=== PATIENT | male | born 1960 | race Caucasian/White ===

== ENCOUNTER → 2016-11-30 | Outpatient (CLI) | payer BC ==
[~2016-11-30] MED LIST: ANTIVERT 25MG25 MG PO; ATORVASTATIN; BYSTOLIC2.5 MG; CRESTOR; HCTZ; LISINOPRIL; LISINOPRIL2.5 MG PO; PHENERGAN 25 TA25 MG PO; TRICOR145 MG PO; ZETIA10 MG PO; ZOFRAN 4MG T4 MG/TAB PO; [UNRECOGNIZED DRUG - OTHER]
== END ==
LOC: COL.VAS 12:15
DX: M79.89 Other specified soft tissue disorders (principal)

== ENCOUNTER 2017-07-02 05:10 | Inpatient (IN) | payer BC ==
[~2017-07-02] VITALS: Ht 175.3 cm; Wt 87.9 kg
[2017-07-02] VITALS (496 sets, daily range): BP systolic 100–204; BP diastolic 53–118; PULSE 83–149; TEMP 97.2–103; O2SAT 81–100
[~2017-07-02 05:10] MED LIST changes: -LISINOPRIL; +PRINZIDE 25 MG-1 TAB PO
[2017-07-02 06:12] LABS: COLLECTION METHOD CLEAN CATCH
[2017-07-02 06:20] LABS: MUCOUS Present /lpf; PH 5 (5-8); SQUAMOUS EPITHELIAL None Seen /hpf; URINE APPEARANCE Clear; URINE BACTERIA None Seen /hpf; URINE BILIRUBIN Negative (NEGATIVE); URINE BLOOD 1+ (NEGATIVE); URINE COLOR Yellow; URINE GLUCOSE Negative (NEGATIVE); URINE KETONE Negative (NEGATIVE); URINE LEUKOCYTE ESTERASE 2+ (NEGATIVE); URINE NITRATE Negative (NEGATIVE); URINE PROTEIN(semi-quant) Negative (NEGATIVE); URINE RBC 0-2 /hpf; URINE UROBILINOGEN Negative (NEGATIVE)
[2017-07-02 06:27] LABS: HEMOGLOBIN 12.9 g/dl (13.5-18.0); MEAN CELL VOLUME 83 fl (80.0-100.0); MEAN CORPUSCULAR HEMOGLOBIN 29 pg (27.0-31.0); MEAN CORPUSCULAR HGB CONC 35 g/dl (33.0-37.0); MEAN PLATELET VOLUME 10.5 fl (7.4-10.4); PLATELET COUNT 129 K/mm3 (130-400); RED BLOOD COUNT 4.44 M/mm3 (4.20-5.60); REDCELL DISTRIBUTION WIDTH-CV 12.9 % (11.5-14.5)
[2017-07-02 06:28] LABS: HEMATOCRIT 36.8 % (42.0-52.0)
[2017-07-02 06:48] LABS: ALBUMIN 4.6 gm/dL (3.5-5.0); BILIRUBIN,TOTAL 1.6 mg/dL (0.0-1.0); CALCIUM 9.7 mg/dL (8.4-10.2); CREATININE, serum 1.06 mg/dL (0.66-1.25); POTASSIUM 3.7 mmol/L (3.4-5.0); TOTAL PROTEIN 7.3 gm/dL (6.4-8.2)
[2017-07-02] MEDS ORDERED: CLEOCIN HCL300 MG PO (06:58)
[2017-07-02] MEDS ORDERED: LEVAQUIN 5500 MG/TA1 PO (06:58)
[2017-07-02 06:59] LABS: C-REACTIVE PROTEIN 17.2 mg/dL (0.0-0.9)
[2017-07-02 07:10] LABS: BAND 17 % (0-10); LYMPHOCYTE 1 % (20.0-51.0); NEUTROPHILS 81 % (42.0-75.2); PLATELET ESTIMATE NORMAL (NORMAL)
[2017-07-02] MEDS ORDERED: PRILOSEC 20MG20 MG PO (07:17)
[2017-07-02] MEDS ORDERED: PRINIVIL10 MG PO (07:18)
[2017-07-02] MEDS ORDERED: VASCEPA1 GM PO (07:19)
[2017-07-02] MEDS ORDERED: BYSTOLIC5 MG PO (07:19)
[2017-07-02] MEDS ORDERED: MULTIVITAMIN1 CTB PO (07:20)
[2017-07-02] MEDS ORDERED: FIBER0.52 GM PO (07:21)
[2017-07-02 16:37] LABS: BILIRUBIN,TOTAL 1.2 mg/dL (0.0-1.0); CALCIUM 8.9 mg/dL (8.4-10.2); CREATININE, serum 1.42 mg/dL (0.66-1.25); TOTAL PROTEIN 6.7 gm/dL (6.4-8.2)
[2017-07-02 16:39] LABS: POTASSIUM 3.3 mmol/L (3.4-5.0)
[2017-07-02 17:07] LABS: TROPONIN-I 3 HR POST INITIAL 0.133 ng/mL (0.000-0.034)
[2017-07-02 17:41] LABS: MEAN CELL VOLUME 84 fl (80.0-100.0); MEAN CORPUSCULAR HGB CONC 35 g/dl (33.0-37.0); MEAN PLATELET VOLUME 10.3 fl (7.4-10.4); PLATELET COUNT 87 K/mm3 (130-400); RED BLOOD COUNT 3.65 M/mm3 (4.20-5.60); REDCELL DISTRIBUTION WIDTH-CV 13.3 % (11.5-14.5)
[2017-07-02 17:42] LABS: HEMATOCRIT 30.7 % (42.0-52.0); HEMOGLOBIN 10.7 g/dl (13.5-18.0); MEAN CORPUSCULAR HEMOGLOBIN 29 pg (27.0-31.0)
[2017-07-02 18:07] LABS: BAND 32 % (0-10); LYMPHOCYTE 8 % (20.0-51.0); METAMYELOCYTE 2 % (0-0); NEUTROPHILS 50 % (42.0-75.2); PLATELET ESTIMATE DECREASED (NORMAL)
[2017-07-03] VITALS (1264 sets, daily range): BP systolic 120–146; BP diastolic 63–81; PULSE 66–107; TEMP 97–102.4; O2SAT 80–100
[2017-07-03 06:12] LABS: MEAN CELL VOLUME 86 fl (80.0-100.0); MEAN CORPUSCULAR HGB CONC 34 g/dl (33.0-37.0); PLATELET COUNT 85 K/mm3 (130-400); RED BLOOD COUNT 3.71 M/mm3 (4.20-5.60); REDCELL DISTRIBUTION WIDTH-CV 13.8 % (11.5-14.5)
[2017-07-03 06:16] LABS: HEMATOCRIT 31.8 % (42.0-52.0); HEMOGLOBIN 10.7 g/dl (13.5-18.0); INR 1.5 (0.8-3.0); MEAN CORPUSCULAR HEMOGLOBIN 29 pg (27.0-31.0); PROTHROMBIN TIME 17.4 SECONDS (9.7-12.8)
[2017-07-03 06:19] LABS: PARTIAL THROMBOPLASTIN TIME 31.2 SECONDS (26.0-37.0)
[2017-07-03 06:25] LABS: ALBUMIN 3.4 gm/dL (3.5-5.0); BILIRUBIN,TOTAL 2.2 mg/dL (0.0-1.0); CALCIUM 8.5 mg/dL (8.4-10.2); CREATININE, serum 1.35 mg/dL (0.66-1.25); POTASSIUM 4.5 mmol/L (3.4-5.0); TOTAL PROTEIN 6.2 gm/dL (6.4-8.2)
[2017-07-04] VITALS (841 sets, daily range): BP systolic 133–152; BP diastolic 79–81; PULSE 76–96; TEMP 98–101.6; O2SAT 76–100
[2017-07-04 06:19] LABS: ALBUMIN 3.1 gm/dL (3.5-5.0); BILIRUBIN,TOTAL 0.9 mg/dL (0.0-1.0); CALCIUM 8.6 mg/dL (8.4-10.2); CREATININE, serum 0.95 mg/dL (0.66-1.25); TOTAL PROTEIN 5.9 gm/dL (6.4-8.2)
[2017-07-04 06:21] LABS: INR 1.4 (0.8-3.0); PROTHROMBIN TIME 15.8 SECONDS (9.7-12.8)
[2017-07-04 06:24] LABS: PARTIAL THROMBOPLASTIN TIME 31.6 SECONDS (26.0-37.0)
[2017-07-04 10:39] LABS: MEAN CELL VOLUME 88 fl (80.0-100.0); MEAN CORPUSCULAR HGB CONC 33 g/dl (33.0-37.0); MEAN PLATELET VOLUME 11.1 fl (7.4-10.4); PLATELET COUNT 113 K/mm3 (130-400); RED BLOOD COUNT 3.57 M/mm3 (4.20-5.60); REDCELL DISTRIBUTION WIDTH-CV 13.7 % (11.5-14.5)
[2017-07-04 10:49] LABS: HEMATOCRIT 31.5 % (42.0-52.0); HEMOGLOBIN 10.4 g/dl (13.5-18.0); MEAN CORPUSCULAR HEMOGLOBIN 29 pg (27.0-31.0)
[2017-07-04 11:17] LABS: BAND 35 % (0-10); EOSINOPHIL 1 % (0-4); LYMPHOCYTE 6 % (20.0-51.0); NEUTROPHILS 56 % (42.0-75.2); PLATELET ESTIMATE DECREASED (NORMAL)
[2017-07-04] MEDS ORDERED: CRESTOR20 MG (22:28)
[2017-07-05 02:50] VITALS: BP 151/82; PULSE 80; TEMP 99.2
[2017-07-05 06:28] VITALS: BP 161/84; PULSE 81; TEMP 99.8
[2017-07-05 06:37] LABS: INR 1.2 (0.8-3.0); PROTHROMBIN TIME 14.2 SECONDS (9.7-12.8)
[2017-07-05 06:39] LABS: ALBUMIN 3.4 gm/dL (3.5-5.0); BILIRUBIN,TOTAL 0.7 mg/dL (0.0-1.0); CALCIUM 8.7 mg/dL (8.4-10.2); CHOLESTEROL RISK RATIO 7.9; CREATININE, serum 0.88 mg/dL (0.66-1.25); POTASSIUM 3.7 mmol/L (3.4-5.0); TOTAL PROTEIN 6.5 gm/dL (6.4-8.2)
[2017-07-05 08:24] LABS: BASO % 0.4 % (0.0-2.0); EOS % 0.6 % (0-4.0); GRAN % 83.4 % (42.2-75.2); LYMPH # 0.4 (1.2-3.4); LYMPH % 7.9 % (20.0-51.0); MEAN CELL VOLUME 86 fl (80.0-100.0); MEAN CORPUSCULAR HGB CONC 34 g/dl (33.0-37.0); MEAN PLATELET VOLUME 11.4 fl (7.4-10.4); MONO # 0.3 (0.1-0.6); MONO % 6.9 % (1.7-9.3); PLATELET COUNT 151 K/mm3 (130-400); RED BLOOD COUNT 3.52 M/mm3 (4.20-5.60); REDCELL DISTRIBUTION WIDTH-CV 13.4 % (11.5-14.5)
[2017-07-05 08:25] LABS: HEMATOCRIT 30.3 % (42.0-52.0); HEMOGLOBIN 10.2 g/dl (13.5-18.0); MEAN CORPUSCULAR HEMOGLOBIN 29 pg (27.0-31.0)
[2017-07-05 10:09] VITALS: BP 169/83; PULSE 85; TEMP 98.8
[2017-07-05 14:00] VITALS: BP 142/76; PULSE 73; TEMP 99
[2017-07-05 17:08] VITALS: BP 151/79; PULSE 77; TEMP 97.2
[2017-07-05 21:29] VITALS: BP 154/83; PULSE 70; TEMP 98.2
[2017-07-06] VITALS (7 sets, daily range): BP systolic 154–170; BP diastolic 50–82; PULSE 47–66; TEMP 97.5–98.5
[2017-07-06 07:14] LABS: MEAN CELL VOLUME 85 fl (80.0-100.0); MEAN CORPUSCULAR HGB CONC 34 g/dl (33.0-37.0); MEAN PLATELET VOLUME 10.6 fl (7.4-10.4); PLATELET COUNT 171 K/mm3 (130-400); RED BLOOD COUNT 3.65 M/mm3 (4.20-5.60); REDCELL DISTRIBUTION WIDTH-CV 13.2 % (11.5-14.5)
[2017-07-06 07:15] LABS: INR 1.2 (0.8-3.0)
[2017-07-06 07:18] LABS: PARTIAL THROMBOPLASTIN TIME 29.4 SECONDS (26.0-37.0)
[2017-07-06 07:20] LABS: ALBUMIN 3.5 gm/dL (3.5-5.0); BILIRUBIN,TOTAL 0.7 mg/dL (0.0-1.0); CALCIUM 8.9 mg/dL (8.4-10.2); CREATININE, serum 0.79 mg/dL (0.66-1.25); POTASSIUM 3.4 mmol/L (3.4-5.0); TOTAL PROTEIN 6.5 gm/dL (6.4-8.2)
[2017-07-06 07:40] LABS: HEMATOCRIT 30.9 % (42.0-52.0); HEMOGLOBIN 10.5 g/dl (13.5-18.0); MEAN CORPUSCULAR HEMOGLOBIN 29 pg (27.0-31.0)
[2017-07-06 10:06] LABS: BAND 40 % (0-10); EOSINOPHIL 1 % (0-4); LYMPHOCYTE 25 % (20.0-51.0); NEUTROPHILS 32 % (42.0-75.2)
[2017-07-06 10:08] LABS: PLATELET ESTIMATE NORMAL (NORMAL)
[2017-07-07 04:01] VITALS: BP 156/79; PULSE 67; TEMP 97.9
[2017-07-07 07:03] LABS: INR 1.2 (0.8-3.0); PROTHROMBIN TIME 14.5 SECONDS (9.7-12.8)
[2017-07-07 07:19] LABS: MEAN CELL VOLUME 84 fl (80.0-100.0); MEAN CORPUSCULAR HGB CONC 34 g/dl (33.0-37.0); MEAN PLATELET VOLUME 10.2 fl (7.4-10.4); PLATELET COUNT 206 K/mm3 (130-400); RED BLOOD COUNT 3.89 M/mm3 (4.20-5.60); REDCELL DISTRIBUTION WIDTH-CV 13.2 % (11.5-14.5)
[2017-07-07 07:29] LABS: ALBUMIN 3.5 gm/dL (3.5-5.0); BILIRUBIN,TOTAL 0.8 mg/dL (0.0-1.0); CALCIUM 9.2 mg/dL (8.4-10.2); CREATININE, serum 0.85 mg/dL (0.66-1.25); HEMATOCRIT 32.7 % (42.0-52.0); HEMOGLOBIN 11.2 g/dl (13.5-18.0); MEAN CORPUSCULAR HEMOGLOBIN 29 pg (27.0-31.0); POTASSIUM 3.7 mmol/L (3.4-5.0); TOTAL PROTEIN 6.5 gm/dL (6.4-8.2)
[2017-07-07] MEDS ORDERED: FLOMAX 0.40.4 MG/CAP PO (07:49)
[2017-07-07] MEDS ORDERED: LIDO2%GEL TOP (07:51)
[2017-07-07] MEDS ORDERED: INVANZ INJ1 G/VIAL IV (08:38)
[2017-07-07] MEDS ORDERED: PROCTOFOAM-HC 11 FOA RC (08:40)
[2017-07-07 09:35] VITALS: BP 167/74; PULSE 79; TEMP 97.6
[2017-07-07 09:55] LABS: BAND 16 % (0-10); LYMPHOCYTE 29 % (20.0-51.0); NEUTROPHILS 50 % (42.0-75.2); PLATELET ESTIMATE NORMAL (NORMAL)
[2017-07-07 09:56] LABS: TOXIC GRANULATION PRESENT
[2017-07-07 11:28] VITALS: BP 148/84; PULSE 74; TEMP 97.9
[2017-07-07] MEDS ORDERED: COREG12.5 MG PO (11:40)
[2017-07-07 15:46] VITALS: BP 148/84; PULSE 74; TEMP 97.9
== END 2017-07-07 15:35 | disposition home or self-care (01) | DRG 871 ==
LOC: COL.ER 05:10 → SURG 07:12 → ICU 07:12 → SURG 07-04 18:48
PROVIDERS: Emergency Medicine; Internal Medicine; Physician Assistant; Urology
PROC: 02HV33Z Insertion of Infusion Device into Superior Vena Cava, Percutaneous Approach (ICD-10-PCS; principal; 2017-07-07)
DX: A41.51 Sepsis due to Escherichia coli [E. coli] (principal); I21.4 Non-ST elevation (NSTEMI) myocardial infarction; N41.0 Acute prostatitis; N17.9 Acute kidney failure, unspecified; N39.0 Urinary tract infection, site not specified; I10 Essential (primary) hypertension; K64.5 Perianal venous thrombosis; R65.20 Severe sepsis without septic shock; B96.20 Unspecified Escherichia coli [E. coli] as the cause of diseases classified elsewhere
CPT/HCPCS: 99223; 99231-AI; 99233-AI; C1751; J0690; J0696; J1335; J1580; J1644; J1720; J1940; J2185; J2270; J2405; J3475; J7030; J7050; J7120; Q9967

== ENCOUNTER 2017-07-08 12:32 | Outpatient (RCR) | payer BC ==
[~2017-07-08] VITALS: Ht 175.3 cm; Wt 87.0 kg
[~2017-07-08 12:32] MED LIST changes: +BYSTOLIC5 MG PO; +CLEOCIN HCL300 MG PO; +COREG12.5 MG PO; +CRESTOR20 MG; +FIBER0.52 GM PO; +FLOMAX 0.40.4 MG/CAP PO; +INVANZ INJ1 G/VIAL IV; +LEVAQUIN 5500 MG/TA1 PO; +LIDO2%GEL TOP; +MULTIVITAMIN1 CTB PO; +PRILOSEC 20MG20 MG PO; +PRINIVIL10 MG PO; +PROCTOFOAM-HC 11 FOA RC; +VASCEPA1 GM PO
[2017-07-10 09:24] VITALS: BP 138/80; PULSE 88; TEMP 98
[2017-07-11 08:33] VITALS: BP 119/62; PULSE 82; TEMP 97.9
[2017-07-12 07:30] VITALS: BP 140/66; PULSE 78; TEMP 97.8
[2017-07-13 08:18] VITALS: BP 112/66; PULSE 68; TEMP 98.1
[2017-07-14 08:17] VITALS: BP 137/82; PULSE 86; TEMP 97.4
[2017-07-14 09:55] LABS: BASO % 0.6 % (0.0-2.0); EOS # 0.1 (0.0-0.7); EOS % 1.7 % (0-4.0); GRAN # 4.4 (1.4-6.5); GRAN % 69.2 % (42.2-75.2); HEMATOCRIT 37.6 % (42.0-52.0); LYMPH # 1.4 (1.2-3.4); LYMPH % 21.3 % (20.0-51.0); MEAN CELL VOLUME 83 fl (80.0-100.0); MEAN CORPUSCULAR HEMOGLOBIN 29 pg (27.0-31.0); MEAN CORPUSCULAR HGB CONC 35 g/dl (33.0-37.0); MEAN PLATELET VOLUME 9.5 fl (7.4-10.4); MONO # 0.4 (0.1-0.6); MONO % 6.9 % (1.7-9.3); PLATELET COUNT 315 K/mm3 (130-400); RED BLOOD COUNT 4.55 M/mm3 (4.20-5.60); REDCELL DISTRIBUTION WIDTH-CV 12.5 % (11.5-14.5)
[2017-07-14 10:08] LABS: ALBUMIN 4.7 gm/dL (3.5-5.0); BILIRUBIN,TOTAL 0.7 mg/dL (0.0-1.0); C-REACTIVE PROTEIN 0.7 mg/dL (0.0-0.9); CALCIUM 9.8 mg/dL (8.4-10.2); CREATININE, serum 0.87 mg/dL (0.66-1.25); POTASSIUM 4.2 mmol/L (3.4-5.0)
[2017-07-14 10:15] LABS: ERYTHROCYTE SEDIMENTATION RATE 28 mm/hr (0-30)
[2017-07-15 07:10] VITALS: BP 122/72; PULSE 69; TEMP 97.3
[2017-07-17 07:31] VITALS: BP 122/70; PULSE 73; TEMP 98.3
[2017-07-18 07:39] VITALS: BP 125/66; PULSE 79; TEMP 98.5
[2017-07-19 08:07] VITALS: BP 120/65; PULSE 79; TEMP 98
[2017-07-20 07:37] VITALS: BP 130/66; PULSE 77; TEMP 97.8
== END 2017-07-20 09:23 | disposition home or self-care (01) ==
LOC: EUO 13:00
PROVIDERS: Internal Medicine Infectious Disease
DX: A41.51 Sepsis due to Escherichia coli [E. coli] (principal); N41.0 Acute prostatitis
CPT/HCPCS: J1335; J1644; J7050

== ENCOUNTER 2022-10-06 12:55 | Emergency (ER) | payer OTHER ==
[~2022-10-06] VITALS: Ht 175.3 cm; Wt 84.1 kg
[2022-10-06 13:53] LABS: BASO % 0.2 % (0.0-2.0); GRAN # 4.8 K/mm3 (1.4-6.5); HEMOGLOBIN 12.4 g/dl (13.5-18.0); LYMPH # 0.3 K/mm3 (1.2-3.4); LYMPH % 4.7 % (20.0-51.0); MEAN CELL VOLUME 86 fl (80.0-100.0); MEAN CORPUSCULAR HEMOGLOBIN 30 pg (27-31); MEAN CORPUSCULAR HGB CONC 35 g/dl (33.0-37.0); MEAN PLATELET VOLUME 10.4 fl (7.4-10.4); MONO # 0.3 K/mm3 (0.1-0.6); MONO % 4.7 % (1.7-9.3); PLATELET COUNT 195 K/mm3 (130-400); RED BLOOD COUNT 4.18 M/mm3 (4.20-5.60); REDCELL DISTRIBUTION WIDTH-CV 13.5 % (11.5-14.5)
[2022-10-06 13:54] LABS: HEMATOCRIT 35.8 % (42.0-52.0)
[2022-10-06 14:04] LABS: ALBUMIN 3.8 gm/dL (3.4-4.8); BILIRUBIN,TOTAL 0.8 mg/dL (0.2-1.2); CALCIUM 9.8 mg/dL (8.4-10.2); CREATININE, serum 1.08 mg/dL (0.72-1.25); POTASSIUM 3.7 mmol/L (3.5-4.5); TOTAL PROTEIN 7.4 gm/dL (6.2-8.1)
[2022-10-06 14:10] LABS: MONOSCREEN POSITIVE
[2022-10-06 14:21] LABS: STREP SCREEN NEGATIVE
[2022-10-06] MEDS ORDERED: CLEOCIN HCL300 MG PO (15:22)
[2022-10-06] MEDS ORDERED: MAGIC MOUTH PO (15:22)
[2022-10-06 15:30] VITALS: BP 123/70; PULSE 75; TEMP 98.2
== END 2022-10-06 15:45 | disposition home or self-care (01) ==
LOC: COL.ER 12:55
PROVIDERS: Emergency Medicine
DX: B27.90 Infectious mononucleosis, unspecified without complication (principal); L08.9 Local infection of the skin and subcutaneous tissue, unspecified; R74.01 Elevation of levels of liver transaminase levels; Z79.01 Long term (current) use of anticoagulants; I48.91 Unspecified atrial fibrillation; Z28.310 Unvaccinated for COVID-19
CPT/HCPCS: J7120

== ENCOUNTER → 2024-02-20 | Outpatient (CLI) | payer OTHER ==
[~2024-02-20] VITALS: Ht 175.3 cm; Wt 79.5 kg
[~2024-02-20] MED LIST changes: +MAGIC MOUTH PO
[2024-02-20 15:44] VITALS: BP 124/77; PULSE 74; TEMP 98.5
== END ==
LOC: COL.ER 15:14
DX: Z46.6 Encounter for fitting and adjustment of urinary device (principal)

== ENCOUNTER 2024-03-24 10:09 | Emergency (ER) | payer OTHER ==
[~2024-03-24] VITALS: Ht 175.3 cm; Wt 77.3 kg
[~2024-03-24 10:09] MED LIST changes: +CEPHALEXIN500 M1 PO
[2024-03-24 10:29] VITALS: BP 119/67; TEMP 98.5
[2024-03-24 11:34] VITALS: PULSE 88
== END 2024-03-24 11:34 | disposition home or self-care (01) ==
LOC: COL.ER 10:09
DX: T83.098A Other mechanical complication of other urinary catheter, initial encounter (principal); Y73.2 Prosthetic and other implants, materials and accessory gastroenterology and urology devices associated with adverse incidents